=== PATIENT | female | born 1960 | race Caucasian/White ===

== ENCOUNTER 2018-06-29 23:41 | Emergency (ER) | payer OTHER ==
[2018-06-29 23:47] VITALS: RESP 18
[2018-06-30] MEDS ORDERED: Sodium Chloride 0.9% 1,000 ML IV STA (00:57)
[2018-06-30] MEDS ORDERED: Iohexol 240 (50 ml) PO ONE (00:57)
[2018-06-30] MEDS ORDERED: Iohexol 240 (50 ml) ONE (01:10)
[2018-06-30 01:35] LABS: BASO % 0.4 % (0.0-2.0); EOS # 0.1 K/uL (0.0-0.7); EOS % 1.1 % (0.0-4.0); HEMOGLOBIN 13.8 g/dL (12.0-16.0); LYMPH # 1.7 K/uL (1.0-4.3); LYMPH % 21.3 % (20.0-40.0); MEAN CELL VOLUME 89.3 fl (81.0-99.0); MEAN CORPUSCULAR HEMOGLOBIN 29.6 pg (27.0-31.0); MEAN CORPUSCULAR HGB CONC 33.1 g/dL (33.0-37.0); MEAN PLATELET VOLUME 9.1 fl (7.2-11.7); MONO # 0.7 K/uL (0.0-0.8); MONO % 8.6 % (0.0-10.0); NEUT # 5.5 K/uL (1.8-7.0); NEUT % 68.6 % (50.0-75.0); RBC 4.66 Mil/uL (3.80-5.20); RED CELL DISTRIBUTION WIDTH 13.2 % (11.5-14.5)
[2018-06-30 01:42] LABS: ALB/GLOB RATIO 1.2 (1.0-2.1); ALBUMIN 3.7 g/dL (3.5-5.0); ALT/SGPT 18 U/L (9-52); AST/SGOT 21 U/L (14-36); BLOOD UREA NITROGEN 17 mg/dl (7-17); CALCIUM 9.2 mg/dL (8.4-10.2); GFR NON-AFRICAN AMERICAN > 60; LIPASE 72 U/L (23-300)
[2018-06-30 01:55] LABS: SQUAMOUS EPITHIAL 4 /hpf (0-5); URINE BACTERIA RARE (<OCC); URINE BILIRUBIN SMALL (NEGATIVE); URINE BLOOD NEGATIVE (NEGATIVE); URINE CALCIUM OXALATE CRYSTALS MANY /hpf (<OCC); URINE CLARITY CLOUDY (Clear); URINE COLOR YELLOW (YELLOW); URINE GLUCOSE (UA) NEG (Normal); URINE HYALINE CAST 0-2 /hpf (0-2); URINE LEUKOCYTE ESTERASE TRACE Leu/uL (Negative); URINE PROTEIN 30 mg/dL (NEGATIVE); URINE UROBILINOGEN 0.2-1.0 mg/dL (0.2-1.0)
--- NOTE | 2018-06-30 02:23 | ED PDOC ---
HPI: Abdomen Time Seen by Provider: 06/29/18 23:57 Chief Complaint (Nursing): Abdominal Pain History Per: Patient Additional Complaint(s): Pt. states for past 3 days she's had constipation which resolved today after taking Magnesium Citrate and now she's developed LLQ abd pain and diarrhea (4 episodes). Denies previous abdominal surgeries, dysuria, hematuria, N/V, melena, hematochezia, BRBPR. Past Medical History Reviewed: Historical Data, Nursing Documentation, Vital Signs Vital Signs: Last Vital Signs Temp 98.3 F 06/29/18 23:43 Pulse 86 06/29/18 23:43 Resp 18 06/29/18 23:43 BP 166/97 H 06/29/18 23:43 Pulse Ox 97 06/29/18 23:43 - Medical History PMH: HTN, Hypercholesterolemia, Kidney Stones - Surgical History Surgical History: No Surg Hx - Family History Family History: States: No Known Family Hx - Home Medications Home Medications: Ambulatory Orders Medication Instructions Recorded Losartan Potassium [Cozaar] 1 tab PO DAILY 06/30/18 Naproxen [Naprosyn] 500 mg PO BID PRN #14 tab 06/30/18 Nebivolol [Bystolic] 5 mg PO DAILY 06/30/18 Rosuvastatin Calcium [Crestor] 20 mg PO DAILY 06/30/18 - Allergies Allergies/Adverse Reactions: Allergies Allergy/AdvReac Type Severity Reaction Status Date / Time No Known Allergies Allergy Verified 06/29/18 23:43 Review of Systems ROS Statement: Except As Marked, All Systems Reviewed And Found Negative Physical Exam - Physical Exam Appears: Positive for: Well, Non-toxic, No Acute Distress Skin: Positive for: Normal Color, Warm. Negative for: Rash Eye Exam: Positive for: Normal appearance Cardiovascular/Chest: Positive for: Regular Rate, Rhythm Respiratory: Positive for: Normal Breath Sounds Gastrointestinal/Abdominal: Positive for: Normal Exam, Soft, Tenderness (moderate LLQ tenderness). Negative for: Guarding Back: Positive for: Normal Inspection. Negative for: L CVA Tenderness, R CVA Tenderness Neurologic/Psych: Positive for: Alert, Oriented (x3) - Laboratory Results Result Diagrams: 06/30/18 01:15 06/30/18 01:15 - ECG O2 Sat by Pulse Oximetry: 97 - Progress ED Course And Treament: Labs, morphine 2mg IV, zofran 4mg IV, IV NS bolus x 1 ordered. 0225 Pt. reports no relief in pain. Morphine 2mg IV ordered. 0400 Reports no improvement in pain. Repeat VSS. Morphine 4mg IV ordered. 0510 CT abd/pelvis w/ IV and PO contrast: 1. thick walled ileum compatible with enteritis. 2. Two large calcified uterine masses compatible with fibroids. On re-evaluation, pt. reports no relief in pain. Informed of results. States that she was dx with fibroids in the past but was never told the size nor has it ever caused her any pain. Toradol 30mg IV ordered. 0605 On re-evaluation, pt. report good pain relief. Informed of results. Gait steady, unassisted. AAOx3. Case d/w Dr. Sinha who agrees with plan and care. Advised to f/u with OBGYN. States she has an OBGYN Dr. Perez and will f/u with her. Disposition - Clinical Impression Clinical Impression: Enteritis, Fibroids - Patient ED Disposition Is Patient to be Admitted: No - Disposition Referrals: [facility] [Outside] Disposition: Routine/Home Disposition Time: 06:08 Condition: IMPROVED Additional Instructions: FOLLOW UP WITH YOUR OBGYN FOR FURTHER EVALUATION RETURN TO ED IMMEDIATELY IF SYMPTOMS WORSEN LOLY BUTT, thank you for letting us take care of you today. Your provider was Castillo Ayala MD and you were treated for PELVIC PAIN. The emergency medical care you received today was directed at your acute symptoms. If you were prescribed any medication, please fill it and take as directed. It may take several days for your symptoms to resolve. Return to the Emergency Department if your symptoms worsen, do not improve, or if you have any other problems. Please contact your doctor or call one of the physicians/clinics you have been referred to that are listed on the Patient Visit Information form that is included in your discharge packet. Bring any paperwork you were given at discharge with you along with any medications you are taking to your follow up visit. Our treatment cannot replace ongoing medical care by a primary care provider outside of the emergency department. Thank you for allowing the [facility] team to be part of your care today. If you had an X-Ray or CT scan: A Radiologist will review the ED reading if any change in treatment is needed we will contact you. If you had a blood, urine, or wound culture: It will take several days for the results, if any change in treatment is needed we will contact you. If you had an STI test: It will take 48 hours for the results. Please call after 1 week if you have not heard back. Prescriptions: Naproxen [Naprosyn] 500 mg PO BID PRN #14 tab PRN Reason: Pain Instructions: Uterine Fibroids (DC), Diarrhea in Adolescents and Adults Forms: [facility] (Wolof) Print Language: MACEDONIAN
[2018-06-30] MEDS ORDERED: Iohexol 300 100 ML IJ ONE (03:43)
[2018-06-30] MEDS ORDERED: Sodium Chloride 0.9% 50 ML IV ONE (03:43)
[2018-06-30] MEDS ORDERED: Morphine 4 MG/ML VIAL IVP STA (04:03)
[2018-06-30 05:31] VITALS: O2SAT 97
[2018-06-30 06:32] VITALS: BP 143/89; PULSE 72; TEMP 98.2
--- NOTE | 2018-06-30 10:41 | CT ---
Date of service: 06/30/2018 PROCEDURE: CT Abdomen and Pelvis with contrast HISTORY: LLQ abd pain COMPARISON: CT scan of the abdomen pelvis dated 05/22/2012 TECHNIQUE: Contrast dose: 90 mL Omnipaque 300 Radiation dose: Total exam DLP = 788.38 mGy-cm. This CT exam was performed using one or more of the following dose reduction techniques: Automated exposure control, adjustment of the mA and/or kV according to patient size, and/or use of iterative reconstruction technique. FINDINGS: LOWER THORAX: Cardiomegaly. No focal consolidation or pleural effusion LIVER: Unremarkable. No gross lesion or ductal dilatation. GALLBLADDER AND BILE DUCTS: Unremarkable. PANCREAS: Unremarkable. No gross lesion or ductal dilatation. SPLEEN: Unremarkable. ADRENALS: Unremarkable. No mass. KIDNEYS AND URETERS: Unremarkable. No hydronephrosis. No solid mass. VASCULATURE: Unremarkable. No aortic aneurysm. No aortic atherosclerotic calcification or mural plaque present. BOWEL: Unremarkable. No obstruction. No gross mural thickening. APPENDIX: Normal appendix. PERITONEUM: Unremarkable. No free fluid. No free air. LYMPH NODES: Unremarkable. No enlarged lymph nodes. BLADDER: Unremarkable. REPRODUCTIVE: Multiple calcified uterine fibroids. BONES: No acute fracture. OTHER FINDINGS: None. IMPRESSION: No acute abdominal pelvic pathology. Stable findings as above.
== END 2018-06-30 06:37 | disposition home or self-care (01) ==
LOC: H.ER 23:41
DX: K52.9 Noninfective gastroenteritis and colitis, unspecified (principal); D25.9 Leiomyoma of uterus, unspecified; I10 Essential (primary) hypertension; Z87.442 Personal history of urinary calculi; Z79.899 Other long term (current) drug therapy
CPT/HCPCS: 74177; 80053; 81003; 83690; 85025; 87086; 96361; 96374; 96375; 96376; 99284; J1885; J2270; J2405; J7030; Q9966; Q9967